=== PATIENT | female | born 1985 | race Asian ===

== ENCOUNTER 2017-10-09 07:51 | Emergency (ER) | payer OTHER ==
[~2017-10-09] VITALS: Ht 154.9 cm; Wt 75.0 kg
[2017-10-09] MEDS ORDERED: ACETAMINOPHEN 500 MG TABLET PO ONE (08:00)
[2017-10-09 09:07] VITALS: BP 122/84
== END 2017-10-09 09:08 | disposition home or self-care (01) ==
LOC: EMS 07:53
DX: S46.911A Strain of unspecified muscle, fascia and tendon at shoulder and upper arm level, right arm, initial encounter (principal); S86.911A Strain of unspecified muscle(s) and tendon(s) at lower leg level, right leg, initial encounter; S86.912A Strain of unspecified muscle(s) and tendon(s) at lower leg level, left leg, initial encounter; V43.62XA Car passenger injured in collision with other type car in traffic accident, initial encounter; Y93.89 Activity, other specified; Y92.488 Other paved roadways as the place of occurrence of the external cause; Y99.8 Other external cause status
CPT/HCPCS: 99283

== ENCOUNTER 2022-11-05 04:02 | Emergency (ER) | payer OTHER ==
[~2022-11-05] VITALS: Ht 154.9 cm; Wt 79.5 kg
[2022-11-05 04:49] LABS: COVID AG,FIA SOURCE NASAL SWAB
[2022-11-05 05:01] LABS: RAPID GROUP A STREP NEGATIVE (NEGATIVE)
[2022-11-05 05:14] LABS: INFLUENZA TYPE A NEGATIVE FOR TYPE A (NEGATIVE); INFLUENZA TYPE B NEGATIVE FOR TYPE B (NEGATIVE)
[2022-11-05] MEDS ORDERED: BENZ-227 PO (05:31)
[2022-11-05] MEDS ORDERED: AMOX250C4 PO (05:32)
[2022-11-05 05:36] VITALS: BP 110/60; PULSE 98; RESP 18; TEMP 99.6
== END 2022-11-05 05:38 | disposition home or self-care (01) ==
LOC: EMS 04:03
DX: J06.9 Acute upper respiratory infection, unspecified (principal); R05.9 Cough, unspecified; Z20.822 Contact with and (suspected) exposure to COVID-19
CPT/HCPCS: 71045; 87430; 87804; 99284